=== PATIENT | female | born 1980 | race Caucasian/White ===

== ENCOUNTER 2016-08-16 17:43 | Emergency (ER) | payer SELFPAY ==
[~2016-08-16] VITALS: Ht 157.5 cm; Wt 79.4 kg
[2016-08-16 18:09] VITALS: BP 155/85
--- NOTE | 2016-08-16 18:35 | PHYS DOC ---
Past Medical History Past Medical History: Other Additional Past Medical Histor: multiple abscess Past Surgical History: Tubal ligation Alcohol Use: None Drug Use: None Adult General Chief Complaint Chief Complaint: UPPER EXTREMITY PAIN HPI HPI Patient is a 36 year old female who presents with an abscess on the left upper extremity that she's had for 2 weeks, patient states the abscess opened up 2 days ago and drained. She has history of similar abscesses. Patient denies any fever. Review of Systems Review of Systems Constitutional: See history of present illness Eyes: Denies change in visual acuity, redness, or eye pain [] Musculoskeletal: Denies back pain or joint pain [] Integument: Left upper extremity abscess Neurologic: Denies headache, focal weakness or sensory changes [] Endocrine: Denies polyuria or polydipsia [] Current Medications Current Medications Current Medications Medications (Trade) Dose Ordered Sig/Dulce Maria Start Time Stop Time Status Last Admin Dose Admin Diphtheria/ Tetanus/Acell Pertussis (Boostrix) 0.5 ml ONCE ONCE 08/16/16 19:00 08/16/16 19:01 Allergies Allergies Allergies Coded Allergies Type Severity Reaction Last Updated Verified No Known Drug Allergies 08/16/16 No Physical Exam Physical Exam Constitutional: Well developed, well nourished, no acute distress, non-toxic appearance. [] HENT: Normocephalic, atraumatic, bilateral external ears normal, oropharynx moist, no oral exudates, nose normal. [] Skin: Left inner biceps with an open wound approximately 1 x 1 cm with surrounding 2 cm cellulitis, there is no drainage from the area. +2 left radial pulse. Adequate ulnar medial radial sensation to the left upper extremity. Cap refill less than 2 seconds the left upper extremity. Back: No tenderness, no CVA tenderness. [] Extremities: No tenderness, no cyanosis, no clubbing, ROM intact, no edema. [] Neurologic: Alert and oriented X 3, normal motor function, normal sensory function, no focal deficits noted. [] Psychologic: Affect normal, judgement normal, mood normal. [] Current Patient Data Vital Signs Vital Signs Date Time Temp Pulse Resp B/P Pulse Ox O2 Delivery O2 Flow Rate FiO2 08/16/16 18:09 98.2 92 16 98 Room Air 98.2 EKG EKG [] Radiology/Procedures Radiology/Procedures [] Course & Med Decision Making Course & Med Decision Making Pertinent Labs and Imaging studies reviewed. (See chart for details) Patient is in the ED with an abscess of the left upper extremity which opened up 2 days ago and drained. She does have cellulitis surrounding the area. She was discharged with Bactrim for 10 days. Given tetanus in the ED. Discharged with Bactrim ointment as well. Follow-up with primary care doctor in one week. She was also provided infectious disease doctor for follow-up. Dragon Disclaimer Dragon Disclaimer This electronic medical record was generated, in whole or in part, using a voice recognition dictation system. Departure Departure Impression: Primary Impression: Abscess of upper extremity Disposition: HOME, SELF-CARE Condition: STABLE Referrals: BRINA WRIGHT MD You can follow-up with the provided infectious disease doctor for recurrence of abscess Patient Instructions: Abscess, Care After Additional Instructions: You were seen for an abscess of the left upper extremity. Keep the area clean and dry. Take the prescribed antibiotics as ordered. Apply Bactroban to the nostrils twice a day for 10 days. Follow-up with the primary care doctor in one week, or the provided infectious disease doctor. Come back to the ED if symptoms worsen Scripts Mupirocin Calcium (Bactroban Nasal)1 Gm Oint...g.1 Gm NS BID #10 GM for 10 days Prov:NGOZI HERMOSILLO APRN 08/16/16 Sulfamethoxazole/Trimethoprim (Bactrim Ds Tablet)1 Each Tablet1 Tab PO BID #20 TAB Prov:NGOZI HERMOSILLO APRN 08/16/16 NGOZI HERMOSILLO APRN Aug 16, 2016 18:35
[2016-08-16] MEDS ORDERED: SULF1TAB24 PO (18:42)
[2016-08-16] MEDS ORDERED: MUPI1OIN NS (18:42)
[2016-08-16] MEDS ORDERED: DIPHTH,PERTUSS(ACELL),TET TOX 0.5 ML DISP.SYRIN. VAX IM ONE (19:00)
== END 2016-08-16 19:19 | disposition home or self-care (01) ==
LOC: ER 17:43
DX: L02.414 Cutaneous abscess of left upper limb (principal)
CPT/HCPCS: 90471; 90715; 99283-25